=== PATIENT | male | born 1985 | race Two or more races ===

== ENCOUNTER 2017-03-19 18:54 | Emergency (ER) | payer MEDICAID ==
[~2017-03-19] VITALS: Ht 172.7 cm; Wt 65.8 kg
[2017-03-19 21:32] LABS: *BILIRUBIN,URIN NEGATIVE (NEGATIVE); *BLOOD, URINE NEGATIVE (NEGATIVE); *CLARITY,URINE CLEAR (CLEAR); *COLOR,URINE YELLOW (YELLOW); *KETONES,URINE NEGATIVE (NEGATIVE); *PROTEIN,URINE NEGATIVE (NEGATIVE); *UROBILINOGEN,URINE 0.2 E.U./dl (NORMAL); LEUKOCYTE ESTERASE ,URINE NEGATIVE (NEGATIVE); NITRITE, URINE NEGATIVE (NEGATIVE); PH,URINE 6.5 (5.0-8.0); UGLUCOSE NEGATIVE (NEGATIVE)
[2017-03-19 21:37] LABS: BASOPHILS % (AUTO) 0.6 % (0.0-2.0); EOSINOPHILS # (AUTO) 0.1 K/uL (0.0-0.7); EOSINOPHILS % (AUTO) 1.7 % (0.0-7.0); HEMATOCRIT 40.7 % (36.7-47.1); HEMOGLOBIN 13.8 g/dL (12.5-16.3); LYMPHOCYTES # (AUTO) 2.8 K/uL (20.0-40.0); LYMPHOCYTES % (AUTO) 35.8 % (20.5-51.5); MEAN CORPUSCULAR HEMOGLOBIN 28.8 uug (23.8-33.4); MEAN CORPUSCULAR HGB CONC 34 g/dL (32.5-36.3); MEAN CORPUSCULAR VOLUME 84.6 fL (73.0-96.2); MONOCYTES # (AUTO) 0.6 K/uL (2.0-10.0); MONOCYTES % (AUTO) 7.3 % (0.0-11.0); NEUTROPHILS # (AUTO) 4.3 K/uL (1.8-8.9); NEUTROPHILS % (AUTO) 54.6 % (38.5-71.5); PLATELET COUNT (AUTO) 382 K/uL (152-348); RED BLOOD CELL COUNT(AUTO) 4.81 MIL/uL (4.06-5.63); WHITE BLOOD COUNT (AUTO) 7.9 K/uL (3.6-10.2)
[2017-03-19 21:37] LABS: WBC,URINE NONE SEEN /HPF (0-3)
[2017-03-19 21:41] LABS: *AMPHETAMINE, URINE NEGATIVE (NEGATIVE); *BARBITURATE, URINE NEGATIVE (NEGATIVE); *CANNABINOID, URINE NEGATIVE (NEGATIVE); *COCCAINE, URINE NEGATIVE (NEGATIVE); *OPIATE, URINE NEGATIVE (NEGATIVE); *PHENCYCLIDINE SCREEN,URINE NEGATIVE (NEGATIVE)
[2017-03-19 21:43] LABS: CARBON DIOXIDE 29 mmol/L (21-32); CHLORIDE 101 mmol/L (98-107); CREATININE 0.8 mg/dL (0.6-1.3); GLUCOSE 94 mg/dL (74-106); UREA NITROGEN, BLOOD 27 mg/dL (7-18)
[2017-03-19 21:56] LABS: ALANINE AMINOTRANSFERASE 30 U/L (16-63); ALKALINE PHOSPHATASE 109 U/L (50-136); ASPARTATE AMINOTRANSFERASE 18 U/L (15-37); BILIRUBIN,DIRECT < 0.1 mg/dL (0.0-0.2); BILIRUBIN,TOTAL 0.1 mg/dL (0.2-1.0); TOTAL PROTEIN, SERUM 7.2 g/dL (6.4-8.2)
[2017-03-19 21:57] LABS: ACETAMINOPHEN < 2.0 ug/mL (10-30)
--- NOTE | 2017-03-19 22:00 | NUR ---
Call placed to Sky Davila LCSW, for PET evaluation, ETA 60 min.
[2017-03-19 22:01] LABS: ETHANOL < 3 MG/DL (0-0)
--- NOTE | 2017-03-19 23:40 | NUR ---
Sky Davila at bedside for evaluation.
--- NOTE | 2017-03-20 00:40 | NUR ---
Patient's information sent to [facility] for possible voluntary admission. Awaiting response.
--- NOTE | 2017-03-20 02:45 | NUR ---
Call received from Ganesh at [facility]. Patient has been accepted by Dr. Michael and is to be transferred to the [facility].
--- NOTE | 2017-03-20 02:55 | NUR ---
Report given to Denilson at [facility]. Jose Miguel contacted for transport, ETA [id number].
--- NOTE | 2017-03-20 03:52 | NUR ---
Patient Tranfers to outside Facility Physician: Dr. Michael Location: [facility]
== END 2017-03-20 03:54 | disposition short-term general hospital (02) ==
LOC: ER 18:54
DX: F32.9 Major depressive disorder, single episode, unspecified (principal); R45.851 Suicidal ideations; Z88.8 Allergy status to other drugs, medicaments and biological substances
CPT/HCPCS: 36415; 71010; 80048; 80076; 80307; 81001; 85025; 93005; 99285; A4663; G0480 ×2; G0481

== ENCOUNTER 2017-07-10 14:31 | Emergency (ER) | payer MEDICAID ==
[~2017-07-10] VITALS: Ht 175.3 cm; Wt 65.8 kg
[2017-07-10] MEDS ORDERED: TRAZ-147 PO (14:49)
[2017-07-10] MEDS ORDERED: SERT100T PO (14:49)
[2017-07-10] MEDS ORDERED: QUET400T PO (14:49)
[2017-07-10 15:12] LABS: BASOPHILS # (AUTO) 0.2 K/uL (0.0-8.0); BASOPHILS % (AUTO) 1.3 % (0.0-2.0); EOSINOPHILS % (AUTO) 0.1 % (0.0-7.0); HEMATOCRIT 37.7 % (36.7-47.1); HEMOGLOBIN 12.8 g/dL (12.5-16.3); LYMPHOCYTES # (AUTO) 1.3 K/uL (20.0-40.0); LYMPHOCYTES % (AUTO) 7.4 % (20.5-51.5); MEAN CORPUSCULAR HEMOGLOBIN 28.9 uug (23.8-33.4); MEAN CORPUSCULAR HGB CONC 34 g/dL (32.5-36.3); MEAN CORPUSCULAR VOLUME 85.1 fL (73.0-96.2); MONOCYTES # (AUTO) 0.9 K/uL (2.0-10.0); MONOCYTES % (AUTO) 4.9 % (0.0-11.0); NEUTROPHILS # (AUTO) 14.9 K/uL (1.8-8.9); NEUTROPHILS % (AUTO) 86.3 % (38.5-71.5); PLATELET COUNT (AUTO) 351 K/uL (152-348); RED BLOOD CELL COUNT(AUTO) 4.43 MIL/uL (4.06-5.63); WHITE BLOOD COUNT (AUTO) 17.3 K/uL (3.6-10.2)
[2017-07-10 15:18] LABS: *BILIRUBIN,URIN NEGATIVE (NEGATIVE); *BLOOD, URINE NEGATIVE (NEGATIVE); *COLOR,URINE YELLOW (YELLOW); *KETONES,URINE 2+ (NEGATIVE); *PROTEIN,URINE 1+ (NEGATIVE); *UROBILINOGEN,URINE 0.2 E.U./dl (NORMAL); LEUKOCYTE ESTERASE ,URINE NEGATIVE (NEGATIVE); NITRITE, URINE NEGATIVE (NEGATIVE); UGLUCOSE NEGATIVE (NEGATIVE)
[2017-07-10 15:33] LABS: CARBON DIOXIDE 21 mmol/L (21-32); CHLORIDE 97 mmol/L (98-107); CREATININE 1.1 mg/dL (0.6-1.3); ETHANOL < 3 MG/DL (0-0); GLUCOSE 63 mg/dL (74-106); POTASSIUM 3.7 mmol/L (3.5-5.1); UREA NITROGEN, BLOOD 29 mg/dL (7-18)
[2017-07-10 15:37] LABS: ACETAMINOPHEN < 2.0 ug/mL (10-30); ALANINE AMINOTRANSFERASE 37 U/L (16-63); ALKALINE PHOSPHATASE 112 U/L (50-136); ASPARTATE AMINOTRANSFERASE 71 U/L (15-37); BILIRUBIN,DIRECT 0.2 mg/dL (0.0-0.2); BILIRUBIN,TOTAL 1.1 mg/dL (0.2-1.0); TOTAL PROTEIN, SERUM 7.7 g/dL (6.4-8.2)
[2017-07-10 15:39] LABS: *AMPHETAMINE, URINE POSITIVE (NEGATIVE); *BARBITURATE, URINE NEGATIVE (NEGATIVE); *CANNABINOID, URINE NEGATIVE (NEGATIVE); *COCCAINE, URINE NEGATIVE (NEGATIVE); *OPIATE, URINE NEGATIVE (NEGATIVE); *PHENCYCLIDINE SCREEN,URINE NEGATIVE (NEGATIVE)
[2017-07-10 15:40] LABS: *CLARITY,URINE SLIGHTLY HAZY (CLEAR)
[2017-07-10 15:43] LABS: MUCUS,URINE MANY /LPF (0-FEW); SPERM,URINE MODERATE /HPF (NONE SEEN); WBC,URINE 0-3 /HPF (0-3)
--- NOTE | 2017-07-10 15:50 | NUR ---
PT MEDICALLY CLEARED. CALLED [facility] FOR PSYCH EVAL.
--- NOTE | 2017-07-10 16:15 | NUR ---
Food and fluid provided per pt request, good appetite. [employer] senior officer at the bedside for safety.
--- NOTE | 2017-07-10 16:50 | NUR ---
Dr Puente reevaluating the pt re anxiety.
--- NOTE | 2017-07-10 16:50 | NUR ---
Pt c/o being anxious and requesting "a shot".
[2017-07-10] MEDS ORDERED: LORAZEPAM 2 MG/1 ML VIAL ONE (16:58)
[2017-07-10] MEDS ORDERED: LORAZEPAM 2 MG/1 ML VIAL IM ONE (17:00)
--- NOTE | 2017-07-10 17:42 | NUR ---
Pt walked to the bathroom w/ steady gait.
--- NOTE | 2017-07-10 18:30 | NUR ---
Sky Davila at the bedside for Psych eval.
--- NOTE | 2017-07-10 18:52 | NUR ---
Per Sky Davila, Pt can be vol admit to [facility](phone # [phone]). Awaiting to receive acceptance info from facility.
--- NOTE | 2017-07-10 19:15 | NUR ---
Patient received in bed resting with eyes closed, meal tray at bedside 100% consumed, personal items removed from bedside for safety. Patient is A/O x3, ambulatory with a steady gait, calm and cooperative at this time. Patient requests water, which was provided.
--- NOTE | 2017-07-10 22:30 | NUR ---
Call placed to [facility] for status, message left for return call.
--- NOTE | 2017-07-10 23:29 | NUR ---
Call placed to [facility] for status, unable to get status information at this time. Fabian, from intake, stated he would "call the nurse to see what was going on."
--- NOTE | 2017-07-11 00:45 | NUR ---
Call received from Ganesh at intake, patient accepted at [facility], Dr. Galarza.
--- NOTE | 2017-07-11 01:42 | NUR ---
Patient Tranfers to outside Facility Physician: Dr. Galarza Location: [facility]
== END 2017-07-11 01:45 | disposition short-term general hospital (02) ==
LOC: ER 14:32
DX: R41.0 Disorientation, unspecified (principal); F31.9 Bipolar disorder, unspecified; F32.9 Major depressive disorder, single episode, unspecified; R45.851 Suicidal ideations; F15.10 Other stimulant abuse, uncomplicated; Z88.8 Allergy status to other drugs, medicaments and biological substances; Z59.0 Homelessness; Z79.891 Long term (current) use of opiate analgesic; Z79.899 Other long term (current) drug therapy
CPT/HCPCS: 36415; 80307; 85025; A4663; G0480; G0480-TC; J2060